=== PATIENT | female | born 1965 ===

== ENCOUNTER 2018-10-31 23:13 | Emergency (ER) | payer BC ==
[2018-10-31 23:22] VITALS: TEMP 98.1
--- NOTE | 2018-11-01 01:16 | ED PDOC ---
Lower Extremity Pain/Injury Time Seen by Provider: 11/01/18 00:58 Chief Complaint (Nursing): Lower Extremity Problem/Injury Chief Complaint (Provider): Lower Extremity Problem/Injury History Per: Patient, Family (Son) History/Exam Limitations: no limitations Onset/Duration Of Symptoms: Days (x3) Additional Complaint(s): 53 years old female presents to ER for evaluation of right leg swelling and pain onset 3 days ago. Son states he think his mother has a clot in her right leg. Patient has a history of +JESUS for an autoimmune disease. She denies fever, warmth, trauma, fall or redness. PMD: In [place] Past Medical History Reviewed: Historical Data, Nursing Documentation, Vital Signs Vital Signs: Last Vital Signs Temp 98.1 F 10/31/18 23:18 Pulse 57 L 10/31/18 23:18 Resp 14 10/31/18 23:18 BP 152/63 H 10/31/18 23:18 Pulse Ox 99 10/31/18 23:18 - Medical History PMH: No Chronic Diseases - Surgical History Surgical History: No Surg Hx - Family History Family History: States: Unknown Family Hx - Social History Current smoker - smoking cessation education provided: No Alcohol: None Drugs: Denies - Allergies Allergies/Adverse Reactions: Allergies Allergy/AdvReac Type Severity Reaction Status Date / Time No Known Allergies Allergy Verified 10/31/18 23:18 Wells Criteria for PE - Wells Criteria for Pulmonary Embolism Clinical Signs and Symptoms of DVT: No P.E is #1 Diagnosis, or Equally Likely: No Previous, objectively diagnosed PE or DVT: No Hemoptysis: No Total Score: 0 Review of Systems ROS Statement: Except As Marked, All Systems Reviewed And Found Negative Constitutional: Negative for: Fever Musculoskeletal: Positive for: Leg Pain (and swelling to right leg) Physical Exam - Reviewed Nursing Documentation Reviewed: Yes Vital Signs Reviewed: Yes - Physical Exam Appears: Positive for: Well, No Acute Distress Head Exam: Positive for: ATRAUMATIC, NORMOCEPHALIC Skin: Positive for: Normal Color, Warm, Dry Cardiovascular/Chest: Positive for: Regular Rate, Rhythm. Negative for: Murmur Respiratory: Positive for: Normal Breath Sounds. Negative for: Respiratory Distress Gastrointestinal/Abdominal: Positive for: Soft Extremity: Positive for: Normal ROM (Upper and lower), Capillary Refill (less than 2 s), Swelling (from right knee down to ankle). Negative for: Tenderness, Calf Tenderness, Deformity, Other (NO Cellulitis, warmth, erythema to right leg) Neurologic/Psych: Positive for: Alert, Oriented (x3) - ECG O2 Sat by Pulse Oximetry: 99 (RA) Pulse Ox Interpretation: Normal Medical Decision Making Medical Decision Making: Time: 5 Initial Plan: --Motrin 600 mg PO --US Duplex Right Lower Extremity Vein ro DVT pt without chest pain or sob and no PE or DVT risk factors 0214 US Duplex Right Lower Extremity Vein Findings: Real-time ultrasound images of the deep venous system with Doppler evaluation. Normal compression, spontaneity and augmentation. Normal color Doppler. No intraluminal thrombus is seen. IMPRESSION: No evidence of deep venous thrombosis. 0345 Upon provider reevaluation patient is feeling better, is medically stable, and requires no further treatment in the ED at this time. Patient is informed of results, will be discharged home with instructions to followup with her PMD. There is agreement to discharge plan. Return if symptoms persist or worsen. Scribe Attestation: Documented by Damaris Blunt, acting as a scribe for Marybel Nichols MD. Provider Scribe Attestation: All medical record entries made by the Scribe were at my direction and personally dictated by me. I have reviewed the chart and agree that the record accurately reflects my personal performance of the history, physical exam, medical decision making, and the department course for this patient. I have also personally directed, reviewed, and agree with the discharge instructions and disposition. Disposition - Clinical Impression Clinical Impression: Leg swelling - Patient ED Disposition Is Patient to be Admitted: No Counseled Patient/Family Regarding: Studies Performed, Diagnosis, Need For Followup - Disposition Disposition: Routine/Home Disposition Time: 03:45 Condition: IMPROVED Additional Instructions: follow up with your primary doctor in 2 days return to the ED with any worsening or concerning symptoms Instructions: Dependent Edema (DC) Forms: [employer] (Mexican)
[2018-11-01 04:09] VITALS: BP 139/84; PULSE 68; RESP 16
[2018-11-01 04:56] VITALS: O2SAT 99
--- NOTE | 2018-11-01 13:20 | US ---
Date of service: 11/01/2018 PROCEDURE: Right lower extremity venous duplex Doppler. HISTORY: RLE swelling and pain COMPARISON: None available. TECHNIQUE: Common femoral, superficial femoral, popliteal and posterior tibial veins were evaluated. Flow was assessed with color Doppler, compressibility, assessment of phasic flow and augmentation response. FINDINGS: COMMON FEMORAL VEIN: Unremarkable. SUPERFICIAL FEMORAL VEIN: Unremarkable. POPLITEAL VEIN: Unremarkable. POSTERIOR TIBIAL VEIN: Unremarkable. OTHER FINDINGS: Simple popliteal fossa cyst 1.1 x 2.7 x 3.6 cm. IMPRESSION: No evidence of deep venous thrombosis in the right lower extremity. Small, uncomplicated Veras's cyst. Concordant findings (preliminary report) provided by [facility].
== END 2018-11-01 04:08 | disposition home or self-care (01) ==
LOC: H.ER 23:13
DX: R60.0 Localized edema (principal)